=== PATIENT | female | born 1975 | race Caucasian/White ===

== ENCOUNTER 2021-05-15 18:13 | Emergency (ER) | payer OTHER, SELFPAY ==
--- NOTE | 2021-05-15 18:17 | XRR_ITS ---
PROCEDURE INFORMATION: Exam: XR Chest Exam date and time: 05/15/2021 6:17 PM Age: 45 years old Clinical indication: Cough and shortness of breath; Additional info: SOB TECHNIQUE: Imaging protocol: XR of the chest. Views: 1 view. COMPARISON: CR Thoracic Spine 3+ views* [id number] 04/20/2018 5:03 PM FINDINGS: Lungs: Lungs are clear. Pleural spaces: There is no pleural effusion or pneumothorax. Heart/Mediastinum: There is mild enlargement of the cardiac silhouette. Bones/joints: Bones are unremarkable. XR/XR chest 1V portable [id number] IMPRESSION: No acute findings.
[2021-05-15 18:23] VITALS: BP 138/82; PULSE 105; RESP 22; TEMP 38; O2SAT 88; BMI 43.7
--- NOTE | 2021-05-15 18:33 | W.ED.FEVER ---
HPI - Fever General: Chief Complaint: Fever Stated Complaint: N/V/COUGH/FEVER Time Seen by Provider: 05/15/21 18:29 History of Present Illness: HPI Narrative: This patient is a 45-year-old female who presents to the emergency department with complaint of shortness of breath fever and body aches. Patient states she is really fatigued. Patient does state that she had a history of bronchial pneumonia for 5 years ago and has really breath breathe well since. Patient is a started getting sick about 8 days ago. Patient does not have a cold vaccine and has not been seen by PCP. Will do medical evaluation treat as needed MD elicited complaint: fever Associated symptoms: Deny abdominal pain, flank pain, chills, chest pain, dysuria, extremity pain, headache(s), nausea or vomiting Review of Systems General: Reports: 10 or more systems reviewed and unremarkable except in HPI and below Const: Reports: fever(s); Denies: chills, body aches or fatigue Eyes: Denies: change in vision or blurry vision ENMT: Denies: throat pain, hoarseness or mouth pain Card: Denies: chest pain, palpitations, irregular heart rhythm, edema, swelling of feet/ankles or lightheadedness Resp: Reports: dyspnea and non-productive cough; Denies: productive cough, wheezing or pain on inspiration GI: Denies: abdominal pain, nausea or vomiting : Denies: flank pain, difficulty voiding, dysuria, urinary frequency, urinary urgency or urinary hesitancy Musc: Denies: neck pain, back pain, extremity pain, extremity swelling, joint pain, joint swelling, joint redness, joint warmth or limited range of motion Skin/Breast: Denies: rash, pruritus, erythema or skin tenderness Neuro: Denies: headache(s), numbness in extremities or weakness in extremities Psych: Denies: anxiety or depression [facility] Female Reproductive History: Date of last menstrual period: 04/29/21 Physical Exam Const: COMMON NORMALS: no acute distress, average body habitus, patient oriented x3, no limitations, healthy appearing, alert and well nourished HENMT: COMMON NORMALS: normocephalic, atraumatic, hearing grossly normal bilaterally, external ears normal, EAC's normal, TM's normal bilaterally, Normal external nose present, Normal nasal mucous membranes and turbinates present, moist oral mucous membranes, oropharynx normal, dentition normal and gingiva normal HEAD & SCALP: normocephalic and atraumatic NOSE: Normal external nose present and Normal nasal mucous membranes and turbinates present EXTERNAL EAR: Yes external ears normal EXTERNAL AUDITORY CANAL: EAC's normal TYMPANIC MEMBRANE: TM's normal bilaterally Neck/C-Spine: COMMON NORMALS: full ROM, no lymphadenopathy, supple, no meningeal signs, no JVD, Thyroid normal and No carotid bruits THYROID: Thyroid normal Chest: COMMONS NORMALS: normal inspection of the chest, normal palpation of entire chest wall, normal inspection of the breasts and normal palpation of the breasts Breast/axilla inspection: Yes normal inspection of the breasts BREAST/AXILLA PALPATION: Yes normal palpation of the breasts Resp: COMMON NORMALS: normal respiratory effort, No retractions, No use of accessory muscles, clear to auscultation bilaterally and percussion normal AUSCULTATION: clear to auscultation bilaterally PERCUSSION: percussion normal Cardio: COMMON NORMALS: no JVD, regular rate, regular rhythm, S1 normal heart sound present, S2 normal heart sound present, No gallops present (Cardio), No clicks present (Cardio), No murmurs present (Cardio), No rub (Cardio) and Peripheral pulses 2+ throughout RATE: regular rate RHYTHM: regular rhythm HEART SOUNDS: S1 normal heart sound present and S2 normal heart sound present PERIPHERAL PULSES: Peripheral pulses 2+ throughout GI: COMMON NORMALS: Normal to inspection, nondistended, normoactive bowel sounds present, Soft to palpation, non-tender, No hepatosplenomegaly present, no masses and no bruits PALPATION: Yes Soft to palpation and Yes No hepatosplenomegaly present Back/Pelvis: COMMON NORMALS: thoracic and lumbar spine normal to inspection, no thoracic nor lumbar tenderness, thoraco-lumbar ROM normal and straight leg raise negative bilaterally Extremity: COMMON NORMALS: normal to inspection, full ROM, capillary refill normal, no joint enlargement, no clubbing, cyanosis or edema, no calf tenderness and no pedal edema Neuro: COMMON NORMALS: patient oriented x3 SENSORIUM/ORIENTATION: Yes alert MENINGEAL SIGNS: Yes no meningeal signs Course Reevaluation(s): Reevaluation #1: Patient is stable. Home O2 evaluation showed the patient tolerated 3 L by nasal cannula. Patient appears to have Covid pneumonia. Patient be discharged home with home O2. Medrol Dosepak. Patient is to continue with albuterol inhaler. Get plenty rest. Patient should return to the emergency department if symptoms fail to improve or worsen. Patient is to maintain self quarantine as instructed Time: 21:58 Vital Signs: Vital signs: Vital Signs Temperature 100.4 F H 05/15/21 18:23 Pulse Rate 104 H 05/15/21 20:41 Respiratory Rate 22 H 05/15/21 20:41 Blood Pressure 119/69 05/15/21 20:41 Pulse Oximetry 96 05/15/21 20:41 MDM - Fever MDM Narrative: Medical decision making narrative: This patient is a 45-year-old female who presents to the emergency department with complaint of shortness of breath fever and body aches. Patient states she is really fatigued. Patient does state that she had a history of bronchial pneumonia for 5 years ago and has really breath breathe well since. Patient is a started getting sick about 8 days ago. Patient does not have a cold vaccine and has not been seen by PCP. Will do medical evaluation treat as needed Patient is stable. Home O2 evaluation showed the patient tolerated 3 L by nasal cannula. Patient appears to have Covid pneumonia. Patient be discharged home with home O2. Medrol Dosepak. Patient is to continue with albuterol inhaler. Get plenty rest. Patient should return to the emergency department if symptoms fail to improve or worsen. Patient is to maintain self quarantine as instructed Lab Data: Labs: Lab Results 05/15/21 05/15/21 05/15/21 Range/Units 18:43 20:22 20:22 WBC 4.7 (4.0-10.0) 10^3/ uL RBC 4.67 (4.1-5.3) 10^6/u L Hgb 12.6 (11.5-15.3) g/dL Hct 40.1 (37.0-47.0) % MCV 85.9 (81-99) fL MCH 27.0 L (28.0-34.0) pg MCHC 31.4 (30.0-36.0) g/dL RDW 14.2 (12.1-15.1) % Plt Count 159 (130-400) 10^3/c mm MPV 11.2 H (7.4-10.4) fL Neut % (Auto) 81.3 % Lymph % (Auto) 13.8 % [place] % (Auto) 4.5 % Eos % (Auto) 0.0 % Baso % (Auto) 0.2 % Neut # (Auto) 3.83 (1.8-7.7) 10^3/u L Lymph # (Auto) 0.7 L (0.8-4.8) 10^3/u L [place] # (Auto) 0.2 (0.2-0.9) 10^3/u L Eos # (Auto) 0.0 (0.0-0.8) 10^3/u L Baso # (Auto) 0.0 (0.0-0.1) 10^3/u L Nucleated RBC % (a uto) 0 % Nucleated RBCs # 0.0 /100WBC D-Dimer 2.20 H (0-0.59) ug/mIFE U Specimen Type Arterial Sample Site Radial, left ABG pH 7.42 (7.35-7.45) ABG pCO2 32.8 L (35-45) mmHg ABG pO2 69.0 L (80.0-100.0) mmH g ABG HCO3 21.2 L (22-26) mmol/L ABG O2 Saturation 95.4 ABG Base Excess -2.6 L (-2.0-2.0) mmol/ L Casey Test Pos A-a O2 Gradient 15.2 H (5-10) mmHg Hematocrit 39.6 (37-47) % Hgb O2 Saturation 93.7 L (95-100) % Carboxyhemoglobin 1.1 (0.4-20.1) %THgb Methemoglobin 0.7 (0.4-1.5) % Total Hemoglobin 12.9 (12-16) g/dL Sodium 132.0 (131-143) mmol/L Potassium 4.1 (3.5-5.0) mmol/L Glucose 255.0 H (70-115) mg/dL Ionized Calcium 1.2 (1.1-1.4) mmol/L O2 Delivery Device Nc O2 Liters/Min 3.0 % FiO2 32.0 % Collector [employer] ID Amh Chloride (98-107) mmol/L Carbon Dioxide (22-29) mmol/L Anion Gap (5-19) BUN (6-20) mg/dL Creatinine (0.5-0.9) mg/dL GFR Calculation (90-130) mL/min Calculated Osmolal ity (285-295) mOsm/k g Lactic Acid (0.5-2.2) mmol/L Calcium (8.5-10.5) mg/dL Total Bilirubin (0.15-1.2) mg/dL AST (0-32) U/L ALT (0-33) U/L Alkaline Phosphata se (35-105) IU/L Total Protein (6.6-8.7) g/dL Albumin (3.5-5.2) g/dL Globulin (1.3-4.6) g/dL SARS-CoV-2 Ag (Rap id) (Negative) Blood Type Rho(D) Type 05/15/21 05/15/21 05/15/21 Range/Units 20:22 20:22 20:22 WBC (4.0-10.0) 10^3/ uL RBC (4.1-5.3) 10^6/u L Hgb (11.5-15.3) g/dL Hct (37.0-47.0) % MCV (81-99) fL MCH (28.0-34.0) pg MCHC (30.0-36.0) g/dL RDW (12.1-15.1) % Plt Count (130-400) 10^3/c mm MPV (7.4-10.4) fL Neut % (Auto) % Lymph % (Auto) % [place] % (Auto) % Eos % (Auto) % Baso % (Auto) % Neut # (Auto) (1.8-7.7) 10^3/u L Lymph # (Auto) (0.8-4.8) 10^3/u L [place] # (Auto) (0.2-0.9) 10^3/u L Eos # (Auto) (0.0-0.8) 10^3/u L Baso # (Auto) (0.0-0.1) 10^3/u L Nucleated RBC % (a uto) % Nucleated RBCs # /100WBC D-Dimer (0-0.59) ug/mIFE U Specimen Type Sample Site ABG pH (7.35-7.45) ABG pCO2 (35-45) mmHg ABG pO2 (80.0-100.0) mmH g ABG HCO3 (22-26) mmol/L ABG O2 Saturation ABG Base Excess (-2.0-2.0) mmol/ L Casey Test A-a O2 Gradient (5-10) mmHg Hematocrit (37-47) % Hgb O2 Saturation (95-100) % Carboxyhemoglobin (0.4-20.1) %THgb Methemoglobin (0.4-1.5) % Total Hemoglobin (12-16) g/dL Sodium 130 L (131-143) mmol/L Potassium 4.6 (3.5-5.0) mmol/L Glucose 238 H (70-115) mg/dL Ionized Calcium (1.1-1.4) mmol/L O2 Delivery Device O2 Liters/Min % FiO2 % [employer] ID Chloride 98 (98-107) mmol/L Carbon Dioxide 21 L (22-29) mmol/L Anion Gap 15.6 (5-19) BUN 12 (6-20) mg/dL Creatinine 0.6 (0.5-0.9) mg/dL GFR Calculation 107.2 (90-130) mL/min Calculated Osmolal ity 278 L (285-295) mOsm/k g Lactic Acid 1.5 (0.5-2.2) mmol/L Calcium 8.9 (8.5-10.5) mg/dL Total Bilirubin 0.4 (0.15-1.2) mg/dL AST 29 (0-32) U/L ALT 23 (0-33) U/L Alkaline Phosphata se 261 H (35-105) IU/L Total Protein 6.8 (6.6-8.7) g/dL Albumin 3.5 (3.5-5.2) g/dL Globulin 3.3 (1.3-4.6) g/dL SARS-CoV-2 Ag (Rap id) (Negative) Blood Type O Positive Rho(D) Type Positive / 4+ 05/15/21 Range/Units 20:22 WBC (4.0-10.0) 10^3/ uL RBC (4.1-5.3) 10^6/u L Hgb (11.5-15.3) g/dL Hct (37.0-47.0) % MCV (81-99) fL MCH (28.0-34.0) pg MCHC (30.0-36.0) g/dL RDW (12.1-15.1) % Plt Count (130-400) 10^3/c mm MPV (7.4-10.4) fL Neut % (Auto) % Lymph % (Auto) % [place] % (Auto) % Eos % (Auto) % Baso % (Auto) % Neut # (Auto) (1.8-7.7) 10^3/u L Lymph # (Auto) (0.8-4.8) 10^3/u L [place] # (Auto) (0.2-0.9) 10^3/u L Eos # (Auto) (0.0-0.8) 10^3/u L Baso # (Auto) (0.0-0.1) 10^3/u L Nucleated RBC % (a uto) % Nucleated RBCs # /100WBC D-Dimer (0-0.59) ug/mIFE U Specimen Type Sample Site ABG pH (7.35-7.45) ABG pCO2 (35-45) mmHg ABG pO2 (80.0-100.0) mmH g ABG HCO3 (22-26) mmol/L ABG O2 Saturation ABG Base Excess (-2.0-2.0) mmol/ L Casey Test A-a O2 Gradient (5-10) mmHg Hematocrit (37-47) % Hgb O2 Saturation (95-100) % Carboxyhemoglobin (0.4-20.1) %THgb Methemoglobin (0.4-1.5) % Total Hemoglobin (12-16) g/dL Sodium (131-143) mmol/L Potassium (3.5-5.0) mmol/L Glucose (70-115) mg/dL Ionized Calcium (1.1-1.4) mmol/L O2 Delivery Device O2 Liters/Min % FiO2 % [employer] ID Chloride (98-107) mmol/L Carbon Dioxide (22-29) mmol/L Anion Gap (5-19) BUN (6-20) mg/dL Creatinine (0.5-0.9) mg/dL GFR Calculation (90-130) mL/min Calculated Osmolal ity (285-295) mOsm/k g Lactic Acid (0.5-2.2) mmol/L Calcium (8.5-10.5) mg/dL Total Bilirubin (0.15-1.2) mg/dL AST (0-32) U/L ALT (0-33) U/L Alkaline Phosphata se (35-105) IU/L Total Protein (6.6-8.7) g/dL Albumin (3.5-5.2) g/dL Globulin (1.3-4.6) g/dL SARS-CoV-2 Ag (Rap id) Positive H (Negative) Blood Type Rho(D) Type Imaging Data^: CXR: Attestation: I personally reviewed and interpreted this imaging study as follows: Radiologist's impression: IMPRESSION: No acute findings. CT Chest: Attestation: I personally reviewed and interpreted this imaging study as follows: Radiologist's impression: IMPRESSION: 1. No pulmonary embolism. 2. Moderate severity bilateral lung disease. Commonly reported imaging features of COVID-19 pneumonia are present. Other processes such as influenza pneumonia and organizing pneumonia (as can be seen with drug toxicity and connective tissue disease), can produce a similar imaging pattern. Discharge Plan Discharge Patient Disposition: Home Clinical Impression: Pneumonia due to COVID-19 virus Condition: Stable Prescriptions: New azithromycin 250 mg tablet 250 mg PO DAILY 6 Days RF: 0 methylprednisolone [Medrol (Yang)] 4 mg tablets,dose pack See Rx Instructions .ROUTE .COMPLEX Qty: 21 RF: 0 albuterol sulfate 90 mcg/actuation HFA aerosol inhaler 2 puff inhalation Q4H PRN (Reason: shortness of breath or wheezing) Qty: 8.5 RF: 0 No Action Tylenol 325 mg Tablet 325 - 650 mg PO Q4H PRN (Reason: PAIN/FEVER) RF: 0 Mucus Relief 200 mg Tablet 200 mg PO Q4H PRN (Reason: COLD/FLU SYMPTOMS) RF: 0 potassium 75 mg Tablet 75 mg PO DAILY RF: 0 Vitamin D3 50 mcg (2,000 unit) Tablet 50 mcg PO DAILY RF: 0 Vitamin C 1 tab PO DAILY RF: 0 Discharge Orders: Discharge ED (Routine); Ordered 05/15/21 Ordered By: Demarco Villalobos Discharge Diet: Advance as tolerated Discharge Activity: Increase activity as tolerated Patient Instructions: Opioid Safety Activity Restrictions/Additional Instructions: Covid precautions and self quarantine as instructed. Take medications as instructed. Get plenty rest drink plenty of fluids. Use home oxygen as instructed. Follow-up with primary care physician in 3 to 5 days as tolerable. Return to the emergency department symptoms fail to improve or worsen. 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
[2021-05-15 18:54] LABS: ABG PCO2 32.8 mmHg (35-45); ABG PH Result 7.42 (7.35-7.45); Alveolar-Arterial Oxygen Gradi 15.2 mmHg (5-10); Arterial Blood Gas Hematocrit 39.6 % (37-47); Base Excess ABG -2.6 mmol/L (-2.0-2.0); Blood Gas Allen Test Pos; Blood Gas Operator Identificat AMH; Blood Gas Sample Site Radial, left; Blood Gas Sample Type Arterial; Carboxyhemoglobin 1.1 %THgb (0.4-20.1); HCO3 ABG 21.2 mmol/L (22-26); HGB O2 Sat 93.7 % (95-100); Ionized Calcium Level - ABG 1.2 mmol/L (1.1-1.4); Methemoglobin 0.7 % (0.4-1.5); Oxygen Device NC; Oxygen Saturation ABG 95.4; Potassium Level - ABG 4.1 mmol/L (3.5-5.0); Total Hemoglobin 12.9 g/dL (12-16)
[2021-05-15] MEDS: acetaminophen 325 mg Tablet 650 MG PO (19:08)
[2021-05-15 19:12] VITALS: O2SAT 87; O2SAT 92; O2SAT 93
[2021-05-15] MEDS: dexamethasone 10 mg/mL INJ IM (19:12)
[2021-05-15 20:31] VITALS: PULSE 107; RESP 20; O2SAT 96
[2021-05-15 20:40] LABS: Basophils % 0.2 %; Hematocrit 40.1 % (37.0-47.0); Hemoglobin 12.6 g/dL (11.5-15.3); Lymphocytes # 0.7 10^3/uL (0.8-4.8); Lymphocytes % 13.8 %; Mean Corpuscular HGB Conc 31.4 g/dL (30.0-36.0); Mean Corpuscular Volume 85.9 fL (81-99); Mean Platelet Volume 11.2 fL (7.4-10.4); Monocytes # 0.2 10^3/uL (0.2-0.9); Monocytes % 4.5 %; Neutrophils # 3.83 10^3/uL (1.8-7.7); Neutrophils % 81.3 %; Nucleated Red Blood Cells % 0 %; Platelet Count 159 10^3/cmm (130-400); Red Blood Count 4.67 10^6/uL (4.1-5.3); Red Cell Distribution Width 14.2 % (12.1-15.1); White Blood Count 4.7 10^3/uL (4.0-10.0)
[2021-05-15 20:41] VITALS: BP 119/69; PULSE 104; RESP 22; O2SAT 96
[2021-05-15] MEDS: ondansetron 2 mg/ML SDV 2 mL 4 MG IVP (20:41)
[2021-05-15 20:55] LABS: Lactic Sepsis W/Reflex 1.5 mmol/L (0.5-2.2)
[2021-05-15 20:56] LABS: Alanine Aminotransferase 23 U/L (0-33); Albumin Level 3.5 g/dL (3.5-5.2); Alkaline Phosphatase 261 IU/L (35-105); Anion Gap 15.6 (5-19); Aspartate Amino Transferase 29 U/L (0-32); Blood Urea Nitrogen 12 mg/dL (6-20); Calcium 8.9 mg/dL (8.5-10.5); Carbon Dioxide 21 mmol/L (22-29); Chloride 98 mmol/L (98-107); Globulin 3.3 g/dL (1.3-4.6); Glomerular Filtration Rate 107.2 mL/min (90-130); Glucose 238 mg/dL (65-115); Osmolality Calculated 278 mOsm/kg (285-295); Potassium 4.6 mmol/L (3.5-5.1); Sodium 130 mmol/L (136-145); Total Bilirubin 0.4 mg/dL (0.15-1.2); Total Protein 6.8 g/dL (6.6-8.7)
[2021-05-15 21:08] LABS: SARS Covid-2 Antigen Positive (Negative)
--- NOTE | 2021-05-15 21:09 | CTR_ITS ---
PROCEDURE INFORMATION: Exam: CTA Chest With Contrast Exam date and time: 05/15/2021 9:09 PM Age: 45 years old Clinical indication: Cough and fever and shortness of breath; Additional info: SOB with elevated ddimer. Covid +. Fever, SOB, cough, weakness x 1 weekk TECHNIQUE: Imaging protocol: Computed tomographic angiography of the chest with contrast. 3D rendering (Not supervised by radiologist): MIP and/or 3D reconstructed images were created by the technologist. Radiation optimization: All CT scans at this facility use at least one of these dose optimization techniques: automated exposure control; mA and/or kV adjustment per patient size (includes targeted exams where dose is matched to clinical indication); or iterative reconstruction. Contrast material: VISI 320; Contrast volume: 68 ml; Contrast route: INTRAVENOUS (IV); COMPARISON: CR (CHEST, ) 05/15/2021 6:29 PM RADIATION DOSE METRICS: Total DLP (mGy-cm): 540.47 FINDINGS: Pulmonary arteries: The pulmonary arteries are adequately opacified for evaluation to the subsegmental level. There is no filling defect to suggest embolism. Aorta: The aorta is unremarkable. There is no aneurysm. Lungs: Moderate severity bilateral lung disease characterized by patchy ground-glass and reticular opacities. Pleural spaces: Unremarkable. No pneumothorax. No pleural effusion. Heart: Heart size is normal. There is no pericardial effusion. Lymph nodes: There is no mediastinal or hilar lymphadenopathy. Liver: There is diffuse low-attenuation of the liver relative to the spleen consistent with fatty infiltration. Bones/joints: Bones are unremarkable. Soft tissues: The extrathoracic soft tissues are unremarkable. CT/CT angio chest PE protcl [id number] IMPRESSION: 1. No pulmonary embolism. 2. Moderate severity bilateral lung disease. Commonly reported imaging features of COVID-19 pneumonia are present. Other processes such as influenza pneumonia and organizing pneumonia (as can be seen with drug toxicity and connective tissue disease), can produce a similar imaging pattern. Radiation Dose CTDIVOL = (mGy): DLP = 540.47 (mGy-cm)
[2021-05-15] MEDS: iodixanol 320 mg/mL 100mL Btl IV (21:33)
== END 2021-05-15 23:26 | disposition home or self-care (01) ==
PROVIDERS: Emergency Medicine; Emergency Provider Emergency Medicine
DX: U07.1 COVID-19 (principal); J12.82 Pneumonia due to coronavirus disease 2019
CPT/HCPCS: 36600; 71045; 71275; 80051; 80053; 82330; 82805; 83605; 85025; 85378; 86900; 87426; 96372; 96374; 99284; J1100; J2405; Q9967

== ENCOUNTER 2021-05-18 17:33 | Inpatient (IN) | payer OTHER, SELFPAY ==
[2021-05-18 17:56] VITALS: BP 124/79; PULSE 82; RESP 22; TEMP 37.1; O2SAT 93; BMI 42.9
--- NOTE | 2021-05-18 18:36 | XRR_ITS ---
PROCEDURE INFORMATION: Exam: XR Chest Exam date and time: 05/18/2021 6:36 PM Age: 45 years old Clinical indication: Shortness of breath; Patient HX: Covid +; Additional info: Hypoxia, dyspnea TECHNIQUE: Imaging protocol: XR of the chest. Views: 1 view. Total images: 1 COMPARISON: CR (CHEST, ) 05/15/2021 6:29 PM FINDINGS: Lungs: Bilateral patches of ground-glass interstitial lung disease consistent with active interstitial pneumonitis. Findings would be consistent with Covid-19 pneumonitis. Evidence of progression of disease since last examination of 05/15/2021. Pleural spaces: Unremarkable. No pleural effusion. No pneumothorax. Heart/Mediastinum: Cardiac structures and configuration stable and within normal limits for age. Bones/joints: Unremarkable. XR/XR chest 1V portable [id number] IMPRESSION: 1. Bilateral patches of ground-glass interstitial lung disease consistent with active interstitial pneumonitis. Findings would be consistent with Covid-19 pneumonitis. 2. Evidence of progression of disease since last evaluation.
--- NOTE | 2021-05-18 19:03 | W.ED.SOB ---
HPI - SOB/Dyspnea General: Chief Complaint: Shortness of Breath/Dyspnea Stated Complaint: Covid +, pneumonia Time Seen by Provider: 05/18/21 18:36 History of Present Illness: HPI Narrative: This patient is a 45-year-old female who presents to the emergency department with Covid pneumonia. Decreased O2 sats and increased work of breathing. Patient was seen in the emergency department couple days ago and was discharged home with home O2 patient states that she feels like she cannot get enough oxygen. Patient denies fever. Patient states she has been taking all the medications that she was prescribed the other day. The medical evaluation treat as needed MD elicited complaint: shortness of breath and cough Pertinent past history: asthma and other (Covid) Onset (ago): day(s) Context: recent illness Associated symptoms: Deny abdominal pain, chest pain, extremity pain, fever(s), lightheadedness, nausea, palpitations or vomiting Review of Systems General: Reports: 10 or more systems reviewed and unremarkable except in HPI and below Const: Denies: fever(s), chills, body aches or fatigue Eyes: Denies: change in vision or blurry vision ENMT: Denies: throat pain, hoarseness or mouth pain Card: Denies: chest pain, palpitations, irregular heart rhythm, edema, swelling of feet/ankles or lightheadedness Resp: Reports: dyspnea, non-productive cough and wheezing; Denies: productive cough or pain on inspiration GI: Denies: abdominal pain, nausea or vomiting : Denies: flank pain, difficulty voiding, dysuria, urinary frequency, urinary urgency or urinary hesitancy Musc: Denies: neck pain, back pain, extremity pain, extremity swelling, joint pain, joint swelling, joint redness, joint warmth or limited range of motion Skin/Breast: Denies: rash, pruritus, erythema or skin tenderness Neuro: Denies: headache(s), numbness in extremities or weakness in extremities Psych: Denies: anxiety or depression [facility] Female Reproductive History: Date of last menstrual period: 04/29/21 Physical Exam Const: COMMON NORMALS: no acute distress, average body habitus, patient oriented x3, no limitations, healthy appearing, alert and well nourished HENMT: COMMON NORMALS: normocephalic, atraumatic, hearing grossly normal bilaterally, external ears normal, EAC's normal, TM's normal bilaterally, Normal external nose present, Normal nasal mucous membranes and turbinates present, moist oral mucous membranes, oropharynx normal, dentition normal and gingiva normal HEAD & SCALP: normocephalic and atraumatic NOSE: Normal external nose present and Normal nasal mucous membranes and turbinates present EXTERNAL EAR: Yes external ears normal EXTERNAL AUDITORY CANAL: EAC's normal TYMPANIC MEMBRANE: TM's normal bilaterally Neck/C-Spine: COMMON NORMALS: full ROM, no lymphadenopathy, supple, no meningeal signs, no JVD, Thyroid normal and No carotid bruits THYROID: Thyroid normal Chest: COMMONS NORMALS: normal inspection of the chest, normal palpation of entire chest wall, normal inspection of the breasts and normal palpation of the breasts Breast/axilla inspection: Yes normal inspection of the breasts BREAST/AXILLA PALPATION: Yes normal palpation of the breasts Resp: COMMON NORMALS: No retractions, No use of accessory muscles and percussion normal EFFORT & INSPECTION: Yes tachypneic and Yes uses accessory muscles PERCUSSION: percussion normal Cardio: COMMON NORMALS: no JVD, regular rate, regular rhythm, S1 normal heart sound present, S2 normal heart sound present, No gallops present (Cardio), No clicks present (Cardio), No murmurs present (Cardio), No rub (Cardio) and Peripheral pulses 2+ throughout RATE: regular rate RHYTHM: regular rhythm HEART SOUNDS: S1 normal heart sound present and S2 normal heart sound present PERIPHERAL PULSES: Peripheral pulses 2+ throughout GI: COMMON NORMALS: Normal to inspection, nondistended, normoactive bowel sounds present, Soft to palpation, non-tender, No hepatosplenomegaly present, no masses and no bruits PALPATION: Yes Soft to palpation and Yes No hepatosplenomegaly present : COMMON NORMALS: Yes no CVA tenderness, Yes normal external appearance, Yes normal appearance of the vagina, Yes normal appearance of the cervix, Yes normal bimanual exam, Yes No adnexal tenderness and Yes no masses BLADDER/KIDNEY EXAM: Yes no CVA tenderness BIMANUAL EXAM - VAGINA & UTERUS: Yes normal bimanual exam Back/Pelvis: COMMON NORMALS: no CVA tenderness, thoracic and lumbar spine normal to inspection, no thoracic nor lumbar tenderness, thoraco-lumbar ROM normal and straight leg raise negative bilaterally Extremity: COMMON NORMALS: normal to inspection, full ROM, capillary refill normal, no joint enlargement, no clubbing, cyanosis or edema, no calf tenderness and no pedal edema Neuro: COMMON NORMALS: patient oriented x3 SENSORIUM/ORIENTATION: Yes alert MENINGEAL SIGNS: Yes no meningeal signs Course Reevaluation(s): Reevaluation #1: I did discuss at length with patient about Covid pneumonia concerns. Patient agrees to be admitted to the hospital. Patient has refused BiPAP. Patient is on 10 L by nasal cannula O2 sat is up to 94% at this time Time: 19:43 Consultations: Consultation #1: I discussed at length with Dr. Vo. He is accepted this patient for admission. He will see patient write additional Time: 19:43 Vital Signs: Vital signs: Vital Signs Temperature 98.7 F 05/18/21 17:56 Pulse Rate 80 05/18/21 20:11 Respiratory Rate 28 H 05/18/21 20:11 Blood Pressure 124/79 05/18/21 17:56 Pulse Oximetry 93 05/18/21 20:11 MDM - SOB/Dyspnea MDM Narrative: Medical decision making narrative: This patient is a 45-year-old female who presents to the emergency department with Covid pneumonia. Decreased O2 sats and increased work of breathing. Patient was seen in the emergency department couple days ago and was discharged home with home O2 patient states that she feels like she cannot get enough oxygen. Patient denies fever. Patient states she has been taking all the medications that she was prescribed the other day. I did discuss at length with patient about Covid pneumonia concerns. Patient agrees to be admitted to the hospital. Patient has refused BiPAP. Patient is on 10 L by nasal cannula O2 sat is up to 94% at this time I discussed at length with Dr. Vo. He is accepted this patient for admission. He will see patient write additional Medical Records: Attestation: I reviewed the patient's medical records. Lab Data: Attestation: I reviewed the patient's lab results. Labs: Lab Results 05/18/21 05/18/21 05/18/21 Range/Units 19:10 19:10 19:10 WBC 9.6 (4.0-10.0) 10^3/ uL RBC 4.70 (4.1-5.3) 10^6/u L Hgb 12.6 (11.5-15.3) g/dL Hct 40.2 (37.0-47.0) % MCV 85.5 (81-99) fL MCH 26.8 L (28.0-34.0) pg MCHC 31.3 (30.0-36.0) g/dL RDW 13.4 (12.1-15.1) % Plt Count 253 (130-400) 10^3/c mm MPV 11.2 H (7.4-10.4) fL Neut % (Auto) 87.1 % Lymph % (Auto) 5.9 % [place] % (Auto) 5.0 % Eos % (Auto) 0.1 % Baso % (Auto) 0.2 % Neut # (Auto) 8.32 H (1.8-7.7) 10^3/u L Lymph # (Auto) 0.6 L (0.8-4.8) 10^3/u L [place] # (Auto) 0.5 (0.2-0.9) 10^3/u L Eos # (Auto) 0.0 (0.0-0.8) 10^3/u L Baso # (Auto) 0.0 (0.0-0.1) 10^3/u L Nucleated RBC % (a uto) 0 % Nucleated RBCs # 0.0 /100WBC APTT 23.0 L (23.9-36.7) SECO NDS Fibrinogen 621 H (174-498) mg/dL D-Dimer 2.49 H (0-0.59) ug/mIFE U Specimen Type Sample Site ABG pH (7.35-7.45) ABG pCO2 (35-45) mmHg ABG pO2 (80.0-100.0) mmH g ABG HCO3 (22-26) mmol/L ABG Base Excess (-2.0-2.0) mmol/ L Casey Test Hematocrit (37-47) % O2 Delivery Device O2 Liters/Min % Computer Help Desk Representative ID Sodium 135 L (136-145) mmol/L Potassium 4.3 (3.5-5.1) mmol/L Chloride 96 L (98-107) mmol/L Carbon Dioxide 25 (22-29) mmol/L Anion Gap 18.3 (5-19) BUN 21 H (6-20) mg/dL Creatinine 0.6 (0.5-0.9) mg/dL GFR Calculation 107.2 (90-130) mL/min Glucose 408 H (65-115) mg/dL Calculated Osmolal ity 300 H (285-295) mOsm/k g Lactic Acid (0.5-2.2) mmol/L Calcium 9.4 (8.5-10.5) mg/dL Total Bilirubin 0.5 (0.15-1.2) mg/dL AST 18 (0-32) U/L ALT 19 (0-33) U/L Alkaline Phosphata se 214 H (35-105) IU/L Creatine Kinase 19 L (26-192) U/L Troponin T Gen 5 n g/L (0-10) ng/L C-Reactive Protein 97.2 H (0.0-4.9) mg/L NT-Pro-B Natriuret Pep 271 H (0-125) pg/mL Total Protein 6.1 L (6.6-8.7) g/dL Albumin 3.6 (3.5-5.2) g/dL Globulin 2.5 (1.3-4.6) g/dL Procalcitonin 0.07 (0-0.5) ng/mL 05/18/21 05/18/21 05/18/21 Range/Units 19:10 19:10 19:30 WBC (4.0-10.0) 10^3/ uL RBC (4.1-5.3) 10^6/u L Hgb (11.5-15.3) g/dL Hct (37.0-47.0) % MCV (81-99) fL MCH (28.0-34.0) pg MCHC (30.0-36.0) g/dL RDW (12.1-15.1) % Plt Count (130-400) 10^3/c mm MPV (7.4-10.4) fL Neut % (Auto) % Lymph % (Auto) % [place] % (Auto) % Eos % (Auto) % Baso % (Auto) % Neut # (Auto) (1.8-7.7) 10^3/u L Lymph # (Auto) (0.8-4.8) 10^3/u L [place] # (Auto) (0.2-0.9) 10^3/u L Eos # (Auto) (0.0-0.8) 10^3/u L Baso # (Auto) (0.0-0.1) 10^3/u L Nucleated RBC % (a uto) % Nucleated RBCs # /100WBC APTT (23.9-36.7) SECO NDS Fibrinogen (174-498) mg/dL D-Dimer (0-0.59) ug/mIFE U Specimen Type Arterial Sample Site Radial, right ABG pH 7.43 (7.35-7.45) ABG pCO2 41.1 (35-45) mmHg ABG pO2 78.4 L (80.0-100.0) mmH g ABG HCO3 26.9 H (22-26) mmol/L ABG Base Excess 2.3 H (-2.0-2.0) mmol/ L Casey Test Pos Hematocrit 37.5 (37-47) % O2 Delivery Device Nc O2 Liters/Min 10.0 % Computer Help Desk Representative ID [email or web address] Sodium (136-145) mmol/L Potassium (3.5-5.1) mmol/L Chloride (98-107) mmol/L Carbon Dioxide (22-29) mmol/L Anion Gap (5-19) BUN (6-20) mg/dL Creatinine (0.5-0.9) mg/dL GFR Calculation (90-130) mL/min Glucose (65-115) mg/dL Calculated Osmolal ity (285-295) mOsm/k g Lactic Acid 3.2 H (0.5-2.2) mmol/L Calcium (8.5-10.5) mg/dL Total Bilirubin (0.15-1.2) mg/dL AST (0-32) U/L ALT (0-33) U/L Alkaline Phosphata se (35-105) IU/L Creatine Kinase (26-192) U/L Troponin T Gen 5 n g/L 7 (0-10) ng/L C-Reactive Protein (0.0-4.9) mg/L NT-Pro-B Natriuret Pep (0-125) pg/mL Total Protein (6.6-8.7) g/dL Albumin (3.5-5.2) g/dL Globulin (1.3-4.6) g/dL Procalcitonin (0-0.5) ng/mL Imaging Data^: CXR: Attestation: I personally reviewed and interpreted this imaging study as follows: Radiologist's impression: IMPRESSION: 1. Bilateral patches of ground-glass interstitial lung disease consistent with active interstitial pneumonitis. Findings would be consistent with Covid-19 pneumonitis. 2. Evidence of progression of disease since last evaluation. 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
[2021-05-18] MEDS: albuterol 8 gm MDI 2 PUFF INHALATION (19:19)
[2021-05-18 19:22] VITALS: PULSE 88; RESP 26; O2SAT 95
[2021-05-18 19:25] LABS: Basophils % 0.2 %; Eosinophils % 0.1 %; Hematocrit 40.2 % (37.0-47.0); Hemoglobin 12.6 g/dL (11.5-15.3); Lymphocytes # 0.6 10^3/uL (0.8-4.8); Lymphocytes % 5.9 %; Mean Corpuscular HGB Conc 31.3 g/dL (30.0-36.0); Mean Corpuscular Hemoglobin 26.8 pg (28.0-34.0); Mean Corpuscular Volume 85.5 fL (81-99); Mean Platelet Volume 11.2 fL (7.4-10.4); Monocytes # 0.5 10^3/uL (0.2-0.9); Neutrophils # 8.32 10^3/uL (1.8-7.7); Neutrophils % 87.1 %; Nucleated Red Blood Cells % 0 %; Platelet Count 253 10^3/cmm (130-400); Red Cell Distribution Width 13.4 % (12.1-15.1); White Blood Count 9.6 10^3/uL (4.0-10.0)
[2021-05-18 19:37] LABS: ABG PCO2 41.1 mmHg (35-45); ABG PH Result 7.43 (7.35-7.45); Arterial Blood Gas Hematocrit 37.5 % (37-47); Base Excess ABG 2.3 mmol/L (-2.0-2.0); Blood Gas Allen Test Pos; Blood Gas Sample Site Radial, right; Blood Gas Sample Type Arterial; HCO3 ABG 26.9 mmol/L (22-26); Oxygen Device NC; PO2 ABG 78.4 mmHg (80.0-100.0)
[2021-05-18 19:48] LABS: Fibrinogen 621 mg/dL (174-498)
[2021-05-18 19:50] LABS: D Dimer 2.49 ug/mIFEU (0-0.59)
[2021-05-18 19:52] LABS: Lactic Sepsis W/Reflex 3.2 mmol/L (0.5-2.2); Troponin T (5th) Once 7 ng/L (0-10)
[2021-05-18 19:59] LABS: NT Pro B Type Natriuretic Pept 271 pg/mL (0-125); Procalcitonin 0.07 ng/mL (0-0.5)
[2021-05-18] MEDS: dexamethasone 4 mg/mL INJ 10 MG IVP (20:05)
[2021-05-18 20:11] VITALS: PULSE 80; RESP 28; O2SAT 93
[2021-05-18 20:11] LABS: Alanine Aminotransferase 19 U/L (0-33); Albumin Level 3.6 g/dL (3.5-5.2); Alkaline Phosphatase 214 IU/L (35-105); Anion Gap 18.3 (5-19); Aspartate Amino Transferase 18 U/L (0-32); Blood Urea Nitrogen 21 mg/dL (6-20); C Reactive Protein 97.2 mg/L (0.0-4.9); Calcium 9.4 mg/dL (8.5-10.5); Carbon Dioxide 25 mmol/L (22-29); Chloride 96 mmol/L (98-107); Creatine Phosphokinase 19 U/L (26-192); Creatinine Clr Calc Pharmacy 143.0571; Globulin 2.5 g/dL (1.3-4.6); Glomerular Filtration Rate 107.2 mL/min (90-130); Glucose 408 mg/dL (65-115); Osmolality Calculated 300 mOsm/kg (285-295); Potassium 4.3 mmol/L (3.5-5.1); Sodium 135 mmol/L (136-145); Total Bilirubin 0.5 mg/dL (0.15-1.2); Total Protein 6.1 g/dL (6.6-8.7)
[2021-05-18] MEDS: sodium chloride 0.9% 500 ML 999 ML IV (20:11)
--- NOTE | 2021-05-18 20:23 | PM.HP ---
Providers/Chief Complaint Chief Complaint: Covid +, pneumonia History of Present Illness 45-year-old female with past medical history of diet controlled diabetes mellitus who was diagnosed with COVID-19 on 05/15/2021 discharged on 3L of o2 via NC presenting to ER with increasing respiratory respiratory distress.Stated after returning home her o2 saturation decreased to low 60s with any exertion. Also noted non-productive cough, generalized weakness, subjective fever, and chills. She was also discharged with medrol dose pack. Upon return to ER today her initial laboratory workup showed a WBC of 9.6, hemoglobin of 12.6, hematocrit 40.2 and platelet count 253. Sodium 135, potassium 4.3, chloride 96, bicarb 25, BUN 21 and creatinine of 0.6 and glucose of 408. Lactic acid of 3.2, AST of 18, ALT of 19 and alkaline phosphatase of 214 CRP of 97.2. ProBNP of 271 procalcitonin of 0.07. Arterial blood gases showed a pH of 7.43, pCO2 41.1, PO2 of 78.4 on 10 L of O2 via nasal cannula. Chest x-ray showed bilateral patchy ground-glass interstitial lung disease consistent with active interstitial pneumonitis. Evidence of progression from prior imaging studies on 05/15. During that time she did have a CTA chest which showed moderate bilateral patchy ground-glass and reticular opacities without evidence of pulmonary embolism. Patient was given decadron 10 mg IV x 1, levaquin 750 IV x 1 and started on HFNC. Review of Systems General: Reports: 10 or more systems reviewed and unremarkable except in HPI and below Medications/Allergies Home Medications Medication Instructions Recorded Confirmed Last Taken Type Vitamin C 1 tab PO DAILY 05/15/21 05/15/21 Unknown History acetaminophen [Tylenol] 325 - 650 mg PO Q4H PRN 05/15/21 05/15/21 05/13/21 History albuterol sulfate 2 puff INHALATION Q4H PRN #8.5 g 05/15/21 Unknown Rx azithromycin 250 mg PO DAILY 6 Days tab 05/15/21 Unknown Rx cholecalciferol (vitamin D3) 50 mcg PO DAILY 05/15/21 05/15/21 Unknown History [Vitamin D3] guaifenesin [Mucus Relief] 200 mg PO Q4H PRN 05/15/21 05/15/21 Unknown History methylprednisolone [Medrol (Yang)] See Rx Instructions .ROUTE 05/15/21 Unknown Rx .COMPLEX #21 ea potassium 75 mg PO DAILY 05/15/21 05/15/21 Unknown History Allergies Allergy/AdvReac Type Severity Reaction Status Date / Time amoxicillin [From Augmentin] Allergy Unknown Verified 05/15/21 19:09 clavulanic acid Allergy Unknown Verified 05/15/21 19:09 [From Augmentin] PFSH Acute PFSH: Medical History (Updated 05/19/21 @ 00:49 by Mohinder Vo MD) Diabetes No pertinent family history Pneumonia due to COVID-19 virus Surgical History (Updated 05/19/21 @ 00:46 by Mohinder Vo MD) No pertinent past surgical history Social History (Updated 05/19/21 @ 00:46 by Mohinder Vo MD) Smoking and tobacco status: never smoked Alcohol intake: never Substance/Drug Use: never Female Reproductive History: Date of last menstrual period: 04/29/21 Vitals/I&O/Wt Last Vital Signs Temp 98.7 F 05/18/21 17:56 Pulse 80 05/18/21 20:11 Resp 28 H 05/18/21 20:11 BP 124/79 05/18/21 17:56 Pulse Ox 93 05/18/21 20:11 Weight last 48 hrs Weight 113.398 kg Physical Exam Narrative: EXAM NARRATIVE: General- alert awake and oriented x3 HEENT- grossly unremarkable Chest- Mildly labored respiration on HFNC CVS - regular rate rhythm Abdomen-soft nontender nondistended Extremities-no edema Data : 05/18/21 19:10 05/18/21 19:10 Micro: Microbiology 05/18/21 19:10 Blood Culture - Preliminary Blood SPECIMEN COLLECTED A&P Assessment and plan (1) Pneumonia due to COVID-19 virus: Unvaccinated Supplemental o2 as needed HFNC currently Decadron 6 mg IV daily Discussed Risk/benefit of remdesivir - would like to wait to decide Can discuss in am Empirically started on levaquin 750 mg IV daily Ferritin, CRP, Pro-danii in am Status: Acute (2) Diabetes: Sliding scale insulin A1c in am Status: Acute (3) DVT prophylaxis: Lovenox 40 mg SQ daily Status: Acute Attestations Medical Necessity Statement*: Will require over 2 midnight stay in hospital for eval and treatment of covid19 pneumonia Time Spent in Patient Care: Greater than 35 minutes (>than 50% of time spent in counselling and/or direct pt care on unit). 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
[2021-05-18 20:54] LABS: INR 0.97 (0.8-1.2)
[2021-05-18] MEDS: levofloxacin-dextrose 5 % 750 MG/150 ML PREMIX 100 MG IV (20:54)
[2021-05-18] MEDS: sodium chloride 0.9% 1,000 ML 999 ML IV (20:55)
[2021-05-18 21:08] LABS: Reflex Lactate Order REFLEX LACTIC ORDERD
[2021-05-18 21:28] LABS: Ferritin 356 ng/mL (15-150)
[2021-05-18 22:11] VITALS: PULSE 80; RESP 20; TEMP 37.1; O2SAT 93
[2021-05-18 22:30] LABS: Lactic Acid level (Lactate) 1.6 mmol/L (0.5-2.2)
--- NOTE | 2021-05-18 22:37 | PC.NURSE ---
REPORT CALLED TO BEV AT [facility] / [facility].
[2021-05-18 23:00] VITALS: PULSE 80; RESP 20; TEMP 37.1; O2SAT 95
[2021-05-18 23:34] VITALS: BP 122/99; PULSE 80; RESP 20; TEMP 37.1; O2SAT 95
[2021-05-19] VITALS (14 sets, daily range): BP systolic 114–167; BP diastolic 71–90; PULSE 66–76; RESP 17–24; TEMP 36.6–36.8; O2SAT 87–96
[2021-05-19] MEDS: enoxaparin 40 mg/0.4 mL Syringe SUBCUT (01:08)
[2021-05-19] MEDS: alum-mag-hydroxide-sime 30 mL UDC PO (06:07)
[2021-05-19 06:34] LABS: Glucose Point of Care 459 mg/dL (70-110)
[2021-05-19 08:34] LABS: Ferritin 318 ng/mL (15-150)
[2021-05-19] MEDS: ondansetron 2 mg/ML SDV 2 mL 4 MG IVP (09:26)
[2021-05-19] MEDS: pantoprazole DR 40 mg Tablet PO (09:26)
--- NOTE | 2021-05-19 10:22 | PM.PN ---
Subjective Subjective: Interval history: Meagan reports she is still significantly short of breath with any movement. I discussed with her the risks and benefits of antiviral, as well as Tocilizumab and she agrees to treatment. Medications: Reviewed: Yes Vitals/I&O/Wt Last Vital Signs Temp 98.2 F 05/19/21 07:37 Pulse 74 05/19/21 09:03 Resp 18 05/19/21 07:37 BP 167/90 05/19/21 07:37 Pulse Ox 96 05/19/21 09:03 05/18/21 05/19/21 05/19/21 22:59 06:59 14:59 Intake Total 1650 / 1650 240 / 240 Output Total 250 / 250 Balance 1650 / 1650 -250 / 1400 240 / 240 Weight last 48 hrs Weight 113.398 kg Physical Exam Narrative: EXAM NARRATIVE: General exam is moderate respiratory distress, while laying in bed on 10 L Neck is supple no lymphadenopathy or thyromegaly Cardiovascular regular rate and rhythm without murmur Lungs coarse breath sounds bilaterally Abdomen is soft nontender with positive bowel sounds. No obvious organomegaly exam is deferred Extremities no cyanosis clubbing or edema Urinary Catheter Management^: Edwards: Cath Placed During This Visit: yes Urinary Catheter Date of Insertion: 05/19/21 Urinary Catheter Time of Insertion: 06:50 Data : 05/18/21 19:10 05/18/21 19:10 Micro: Microbiology 05/18/21 19:00 Blood Culture - Preliminary Blood SPECIMEN COLLECTED 05/18/21 19:10 Blood Culture - Preliminary Blood SPECIMEN COLLECTED A&P Assessment and plan (1) Pneumonia due to COVID-19 virus: Continue dexamethasone 6 mg IV every 24 hours Add remdesivir Tocilizumab today Combivent every 6 hours Changed to high flow humidified Continuous pule ox High risk for decompensation Status: Acute (2) Acute and chronic respiratory failure with hypoxia: See above Status: Acute (3) Diabetes: Continue sliding scale insulin Add Lantus 20 units nightly Check hemoglobin A1c Status: Acute Additional A&P Information Full code Lovenox for DVT prophylaxis, 30 mg twice daily considering weight Attestations Medical Necessity Statement*: Needs continued hospital stay for support with high flow oxygen secondary to COVID-19 pneumonia as well as treatment with antiviral. 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
[2021-05-19] MEDS: remdesivir 200 MG in sodium chloride 0.9% (100 ml) 100 ML 100 MG IV (10:50)
[2021-05-19 11:26] LABS: Glucose Point of Care 416 mg/dL (70-110)
[2021-05-19] MEDS: FUROsemide 10 mg/mL SDV 2mL 20 MG IVP (12:27)
[2021-05-19] MEDS: LORazepam 0.5 mg Tablet PO ×2 (12:27→22:11)
[2021-05-19] MEDS: tocilizumab 800 MG in sodium chloride 0.9% (100 ml) 100 ML 100 MG IV (12:27)
[2021-05-19 16:51] LABS: Glucose Point of Care 385 mg/dL (70-110)
[2021-05-19] MEDS: enoxaparin 30 mg/0.3 mL Syringe SUBCUT (18:06)
[2021-05-19] MEDS: dexamethasone 4 mg/mL INJ 6 MG IVP (18:07)
[2021-05-19] MEDS: insulin glargine 100 units/1 mL 20 UNIT SUBCUT (20:39)
[2021-05-19] MEDS: levofloxacin-dextrose 5 % 750 MG/150 ML PREMIX 100 MG IV (20:39)
[2021-05-19 21:00] LABS: Glucose Point of Care 380 mg/dL (70-110)
[2021-05-20] VITALS (14 sets, daily range): BP systolic 105–150; BP diastolic 68–87; PULSE 54–92; RESP 16–30; TEMP 36.4–36.9; O2SAT 88–98
[2021-05-20] MEDS: remdesivir 100 MG in sodium chloride 0.9% (100 ml) 100 ML IV (05:32)
[2021-05-20] MEDS: enoxaparin 30 mg/0.3 mL Syringe SUBCUT ×2 (05:32→18:24)
[2021-05-20 06:12] LABS: Basophils % 0.2 %; Hematocrit 38.6 % (37.0-47.0); Hemoglobin 12.2 g/dL (11.5-15.3); Lymphocytes # 0.5 10^3/uL (0.8-4.8); Lymphocytes % 11.7 %; Mean Corpuscular HGB Conc 31.6 g/dL (30.0-36.0); Mean Corpuscular Volume 85.4 fL (81-99); Mean Platelet Volume 11.2 fL (7.4-10.4); Monocytes # 0.3 10^3/uL (0.2-0.9); Monocytes % 6.9 %; Neutrophils # 3.54 10^3/uL (1.8-7.7); Neutrophils % 76.4 %; Nucleated Red Blood Cells % 0 %; Platelet Count 260 10^3/cmm (130-400); Red Blood Count 4.52 10^6/uL (4.1-5.3); Red Cell Distribution Width 13.1 % (12.1-15.1); White Blood Count 4.6 10^3/uL (4.0-10.0)
[2021-05-20 06:27] LABS: Alanine Aminotransferase 19 U/L (0-33); Albumin Level 3.2 g/dL (3.5-5.2); Alkaline Phosphatase 186 IU/L (35-105); Anion Gap 16.4 (5-19); Aspartate Amino Transferase 16 U/L (0-32); Blood Urea Nitrogen 24 mg/dL (6-20); Calcium 9.4 mg/dL (8.5-10.5); Carbon Dioxide 25 mmol/L (22-29); Chloride 97 mmol/L (98-107); Creatinine Clr Calc Pharmacy 143.0571; Globulin 2.9 g/dL (1.3-4.6); Glomerular Filtration Rate 107.2 mL/min (90-130); Glucose 387 mg/dL (65-115); Osmolality Calculated 298 mOsm/kg (285-295); Potassium 4.4 mmol/L (3.5-5.1); Sodium 134 mmol/L (136-145); Total Bilirubin 0.3 mg/dL (0.15-1.2); Total Protein 6.1 g/dL (6.6-8.7)
[2021-05-20 06:31] LABS: C Reactive Protein 35.5 mg/L (0.0-4.9)
[2021-05-20 06:43] LABS: Glucose Point of Care 370 mg/dL (70-110)
[2021-05-20 06:50] LABS: D Dimer 1.51 ug/mIFEU (0-0.59)
[2021-05-20 07:45] LABS: Ferritin 307 ng/mL (15-150)
[2021-05-20 07:53] LABS: Estmated Average Glucose 246; Hemoglobin A1C 10.2 % (4.0-6.0)
[2021-05-20] MEDS: pantoprazole DR 40 mg Tablet PO (08:05)
[2021-05-20 11:14] LABS: Glucose Point of Care 469 mg/dL (70-110)
--- NOTE | 2021-05-20 11:20 | PM.PN ---
Subjective Subjective: Interval history: Meagan reports that she believes she is breathing a little bit better. Her oxygen saturations of go up. She is still very fatigued, and gets short of breath with any exertion. Medications: Reviewed: Yes Vitals/I&O/Wt Last Vital Signs Temp 98.2 F 05/20/21 07:50 Pulse 61 05/20/21 08:29 Resp 18 05/20/21 08:25 BP 106/72 05/20/21 07:50 Pulse Ox 95 05/20/21 08:25 05/19/21 05/20/21 05/20/21 22:59 06:59 14:59 Intake Total 390 / 1110 460 / 460 Output Total 2600 / 2600 775 / 3375 Balance -2210 / -1490 -775 / -2265 460 / 460 Weight last 48 hrs Weight 113.398 kg Physical Exam Narrative: EXAM NARRATIVE: General exam is moderate respiratory distress, 60% FiO2 per high flow nasal cannula Neck is supple no lymphadenopathy or thyromegaly Cardiovascular regular rate and rhythm without murmur Lungs coarse breath sounds bilaterally Abdomen is soft nontender with positive bowel sounds. No obvious organomegaly Extremities no cyanosis clubbing or edema Urinary Catheter Management^: Edwards: Cath Placed During This Visit: yes Reason for Continuing Indwelling Catheter: Other Urinary Catheter Date of Insertion: 05/19/21 Urinary Catheter Time of Insertion: 06:50 Data : 05/20/21 05:40 05/20/21 05:40 Micro: Microbiology 05/18/21 19:00 Blood Culture - Preliminary Blood NEGATIVE TO DATE 05/18/21 19:10 Blood Culture - Preliminary Blood NEGATIVE TO DATE A&P Assessment and plan (1) Pneumonia due to COVID-19 virus: Continue dexamethasone 6 mg IV every 24 hours Continue remdesivir Tocilizumab was given 05/19 Combivent every 6 hours Wean oxygen as tolerated Currently on Levaquin. Consider discontinuation after 5 days if no evidence of bacterial infection. Inflammatory markers have improved. Incentive spirometry 1 dose of Lasix was given 05/19 with good result. Status: Acute (2) Acute and chronic respiratory failure with hypoxia: See above Status: Acute (3) Diabetes: Blood sugar still significantly elevated Increase Lantus to 30 units nightly, 10 units now Continue sliding scale insulin Check hemoglobin A1c Status: Acute Additional A&P Information Anxiety. Continue Ativan as needed Full code Lovenox for DVT prophylaxis, 30 mg twice daily considering weight Attestations Medical Necessity Statement*: Needs continued hospitalization for supportive care and antiviral secondary to severe COVID-19 pneumonia. 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
[2021-05-20] MEDS: insulin glargine 100 units/1 mL 10 UNIT SUBCUT (13:07)
--- NOTE | 2021-05-20 15:34 | PC.NUTR ---
Nutrition assessment completed d/t MST score of 3 for decreased appetite and wt loss. HgbA1C of 10.2, poc glucose ranging 370-469 noted. Recommend change diet to Consistent Carb--notified Dr. Howard of recommendation. Pt may benefit from outpatient nutrition education r/t diabetes if interested. See RD assessment for further details.
[2021-05-20 17:04] LABS: Glucose Point of Care 347 mg/dL (70-110)
[2021-05-20] MEDS: dexamethasone 4 mg/mL INJ 6 MG IVP (17:56)
[2021-05-20] MEDS: insulin glargine 100 units/1 mL 30 UNIT SUBCUT (21:03)
[2021-05-20] MEDS: levofloxacin-dextrose 5 % 750 MG/150 ML PREMIX 100 MG IV (21:03)
[2021-05-20 21:30] LABS: Glucose Point of Care 450 mg/dL (70-110)
[2021-05-20] MEDS: LORazepam 0.5 mg Tablet PO (22:26)
[2021-05-21] VITALS (16 sets, daily range): BP systolic 111–167; BP diastolic 70–90; PULSE 55–84; RESP 16–22; TEMP 36.4–37.1; O2SAT 84–97
[2021-05-21] MEDS: remdesivir 100 MG in sodium chloride 0.9% (100 ml) 100 ML IV (05:33)
[2021-05-21] MEDS: enoxaparin 30 mg/0.3 mL Syringe SUBCUT ×2 (05:33→17:31)
[2021-05-21 06:39] LABS: Glucose Point of Care 397 mg/dL (70-110)
[2021-05-21] MEDS: pantoprazole DR 40 mg Tablet PO (09:02)
[2021-05-21 11:17] LABS: Alanine Aminotransferase 19 U/L (0-33); Alkaline Phosphatase 172 IU/L (35-105); Anion Gap 18.1 (5-19); Aspartate Amino Transferase 18 U/L (0-32); Blood Urea Nitrogen 26 mg/dL (6-20); Calcium 9.1 mg/dL (8.5-10.5); Carbon Dioxide 23 mmol/L (22-29); Chloride 98 mmol/L (98-107); Creatinine Clr Calc Pharmacy 143.0571; Globulin 2.6 g/dL (1.3-4.6); Glomerular Filtration Rate 107.2 mL/min (90-130); Glucose 446 mg/dL (65-115); Osmolality Calculated 304 mOsm/kg (285-295); Potassium 4.1 mmol/L (3.5-5.1); Sodium 135 mmol/L (136-145); Total Bilirubin 0.3 mg/dL (0.15-1.2); Total Protein 5.6 g/dL (6.6-8.7)
[2021-05-21 11:27] LABS: Glucose Point of Care 417 mg/dL (70-110)
--- NOTE | 2021-05-21 11:59 | P.PN_ITS ---
Subjective Subjective: Interval history: Meagan reports she feels little bit better. She states she cannot really use the humidified high flow as it bothers her too much and she has back on a 15 L. Feels stronger. Medications: Reviewed: Yes Vitals/I&O/Wt Last Vital Signs Temp 97.6 F 05/21/21 11:01 Pulse 65 05/21/21 11:37 Resp 20 H 05/21/21 11:33 BP 128/74 05/21/21 11:01 Pulse Ox 91 05/21/21 11:33 05/20/21 05/21/21 05/21/21 22:59 06:59 14:59 Intake Total 390 / 1210 340 / 340 Output Total 750 / 750 850 / 1600 Balance -360 / 460 -850 / -390 340 / 340 Physical Exam Narrative: EXAM NARRATIVE: General exam is moderate respiratory distress, but does appear stronger Neck is supple no lymphadenopathy or thyromegaly Cardiovascular regular rate and rhythm without murmur Lungs coarse breath sounds bilaterally Abdomen is soft nontender with positive bowel sounds. No obvious organomegaly Extremities no cyanosis clubbing or edema Urinary Catheter Management^: Edwards: Cath Placed During This Visit: yes Reason for Continuing Indwelling Catheter: Other Urinary Catheter Date of Insertion: 05/19/21 Urinary Catheter Time of Insertion: 06:50 Data : 05/20/21 05:40 05/21/21 10:45 A&P Assessment and plan (1) Pneumonia due to COVID-19 virus: Continue dexamethasone 6 mg IV every 24 hours Continue remdesivir Tocilizumab was given 05/19 Combivent every 6 hours Wean oxygen as tolerated Currently on Levaquin. Consider discontinuation after 5 days if no evidence of bacterial infection. Inflammatory markers have improved. Repeat tomorrow along with procalcitonin level. Incentive spirometry 1 dose of Lasix was given 05/19 with good result. Status: Acute (2) Acute and chronic respiratory failure with hypoxia: See above Status: Acute (3) Diabetes: Blood sugar still significantly elevated Increase Lantus to 40 units nightl Continue sliding scale insulin Hemoglobin A1c was significantly elevated Status: Acute Additional A&P Information Anxiety. 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
--- NOTE | 2021-05-21 15:41 | PC.NURSE ---
I reported the low bp to the nurse
--- NOTE | 2021-05-21 15:42 | PC.NURSE ---
I reported the low 02 of 84% to the nurse. (not the bp from previous note)
[2021-05-21 16:56] LABS: Glucose Point of Care 307 mg/dL (70-110)
[2021-05-21] MEDS: dexamethasone 4 mg/mL INJ 6 MG IVP (17:31)
[2021-05-21] MEDS: levofloxacin-dextrose 5 % 750 MG/150 ML PREMIX 100 MG IV (21:34)
[2021-05-21 21:35] LABS: Glucose Point of Care 406 mg/dL (70-110)
[2021-05-21] MEDS: insulin glargine 100 units/1 mL 40 UNIT SUBCUT (21:40)
[2021-05-22] VITALS (17 sets, daily range): BP systolic 100–139; BP diastolic 64–87; PULSE 61–86; RESP 18–22; TEMP 36.6–37.2; O2SAT 85–97
[2021-05-22] MEDS: LORazepam 0.5 mg Tablet PO ×2 (02:29→23:03)
[2021-05-22] MEDS: remdesivir 100 MG in sodium chloride 0.9% (100 ml) 100 ML IV (05:24)
[2021-05-22] MEDS: enoxaparin 30 mg/0.3 mL Syringe SUBCUT ×2 (05:25→17:25)
[2021-05-22 06:35] LABS: Glucose Point of Care 352 mg/dL (70-110)
[2021-05-22 07:39] LABS: Basophils % 0.3 %; Eosinophils # 0.1 10^3/uL (0.0-0.8); Eosinophils % 0.9 %; Hematocrit 38.5 % (37.0-47.0); Hemoglobin 12.5 g/dL (11.5-15.3); Lymphocytes # 0.6 10^3/uL (0.8-4.8); Lymphocytes % 10.6 %; Mean Corpuscular HGB Conc 32.5 g/dL (30.0-36.0); Mean Corpuscular Hemoglobin 27.1 pg (28.0-34.0); Mean Corpuscular Volume 83.5 fL (81-99); Mean Platelet Volume 10.9 fL (7.4-10.4); Monocytes # 0.5 10^3/uL (0.2-0.9); Monocytes % 8.2 %; Neutrophils # 4.28 10^3/uL (1.8-7.7); Neutrophils % 74.8 %; Nucleated Red Blood Cells % 0 %; Platelet Count 322 10^3/cmm (130-400); Red Blood Count 4.61 10^6/uL (4.1-5.3); Red Cell Distribution Width 13.2 % (12.1-15.1); White Blood Count 5.7 10^3/uL (4.0-10.0)
[2021-05-22 07:52] LABS: D Dimer 1.85 ug/mIFEU (0-0.59)
[2021-05-22 08:07] LABS: Procalcitonin 0.02 ng/mL (0-0.5)
[2021-05-22 08:18] LABS: Alanine Aminotransferase 17 U/L (0-33); Albumin Level 3.2 g/dL (3.5-5.2); Alkaline Phosphatase 159 IU/L (35-105); Aspartate Amino Transferase 14 U/L (0-32); Blood Urea Nitrogen 25 mg/dL (6-20); C Reactive Protein 5.9 mg/L (0.0-4.9); Calcium 8.8 mg/dL (8.5-10.5); Carbon Dioxide 25 mmol/L (22-29); Chloride 98 mmol/L (98-107); Creatinine Clr Calc Pharmacy 143.0571; Ferritin 228 ng/mL (15-150); Globulin 2.5 g/dL (1.3-4.6); Glomerular Filtration Rate 107.2 mL/min (90-130); Glucose 341 mg/dL (65-115); Osmolality Calculated 296 mOsm/kg (285-295); Sodium 134 mmol/L (136-145); Total Bilirubin 0.3 mg/dL (0.15-1.2); Total Protein 5.7 g/dL (6.6-8.7)
[2021-05-22 08:32] LABS: Slide Review Slide Review Perform
[2021-05-22] MEDS: pantoprazole DR 40 mg Tablet PO (08:46)
[2021-05-22] MEDS: FUROsemide 10 mg/mL SDV 2mL 20 MG IVP (09:46)
--- NOTE | 2021-05-22 10:41 | P.PN_ITS ---
Subjective Subjective: Interval history: Meagan reports she feels a little bit better as far as her breathing. She is slightly nauseated this morning. Medications: Reviewed: Yes Vitals/I&O/Wt Last Vital Signs Temp 97.8 F 05/22/21 08:00 Pulse 77 05/22/21 09:10 Resp 18 05/22/21 09:10 BP 137/87 05/22/21 08:00 Pulse Ox 96 05/22/21 09:10 05/21/21 05/22/21 05/22/21 22:59 06:59 14:59 Intake Total 720 / 1300 610 / 1910 Output Total 1550 / 1550 1100 / 2650 Balance -830 / -250 -490 / -740 Physical Exam Narrative: EXAM NARRATIVE: General exam is moderate respiratory distress, but does appear stronger Neck is supple no lymphadenopathy or thyromegaly Cardiovascular regular rate and rhythm without murmur Lungs coarse breath sounds bilaterally Abdomen is soft nontender with positive bowel sounds. No obvious organomegaly Extremities no cyanosis clubbing or edema Urinary Catheter Management^: Edwards: Cath Placed During This Visit: yes Reason for Continuing Indwelling Catheter: Other Urinary Catheter Date of Insertion: 05/19/21 Urinary Catheter Time of Insertion: 06:50 Data : 05/22/21 06:35 05/22/21 06:35 A&P Assessment and plan (1) Pneumonia due to COVID-19 virus: Continue dexamethasone 6 mg IV every 24 hours Continue remdesivir Tocilizumab was given 05/19 Combivent every 6 hours Wean oxygen as tolerated. She is now down to 10 L Procalcitonin level repeated and not elevated. Discontinue Levaquin. Incentive spirometry 1 dose of Lasix was given 05/19 with good result. Repeat dose today to see if this improves oxygenation further Status: Acute (2) Acute and chronic respiratory failure with hypoxia: See above Status: Acute (3) Diabetes: Blood sugar still significantly elevated Increase Lantus to 50 units Continue sliding scale insulin Hemoglobin A1c was significantly elevated Status: Acute Additional A&P Information Anxiety. Continue Ativan as needed Full code Lovenox for DVT prophylaxis, 30 mg twice daily considering weight Lab holiday tomorrow. Attestations Medical Necessity Statement*: Needs continued hospitalization for antiviral, supportive care secondary to severe COVID-19 pneumonia. Coding Level of Care Code Acute First Breaker Feeder for [facility] Fwd Diagnoses Pneumonia due to COVID-19 virus U07.1; J12.82 Acute and chronic respiratory failure with hypoxia J96.21 Diabetes E11.9
[2021-05-22 11:11] LABS: Glucose Point of Care 375 mg/dL (70-110)
[2021-05-22] MEDS: ondansetron 2 mg/ML SDV 2 mL 4 MG IVP (11:38)
[2021-05-22 17:12] LABS: Glucose Point of Care 266 mg/dL (70-110)
[2021-05-22] MEDS: dexamethasone 4 mg/mL INJ 6 MG IVP (17:25)
[2021-05-22 21:38] LABS: Glucose Point of Care 424 mg/dL (70-110)
[2021-05-22] MEDS: insulin glargine 100 units/1 mL 50 UNIT SUBCUT (22:31)
[2021-05-23] VITALS (13 sets, daily range): BP systolic 103–134; BP diastolic 67–77; PULSE 51–84; RESP 16–20; TEMP 36.4–36.8; O2SAT 90–98
[2021-05-23] MEDS: remdesivir 100 MG in sodium chloride 0.9% (100 ml) 100 ML IV (05:26)
[2021-05-23] MEDS: enoxaparin 30 mg/0.3 mL Syringe SUBCUT ×2 (05:26→17:48)
[2021-05-23 06:41] LABS: Glucose Point of Care 447 mg/dL (70-110)
--- NOTE | 2021-05-23 07:54 | P.PN_ITS ---
Subjective Subjective: Interval history: Meagan reports she feels better. Has more energy. Oxygen was unable to be weaned last night. Medications: Reviewed: Yes Vitals/I&O/Wt Last Vital Signs Temp 97.6 F 05/23/21 03:44 Pulse 51 L 05/23/21 06:00 Resp 20 H 05/23/21 03:44 BP 134/77 05/23/21 03:44 Pulse Ox 92 05/23/21 03:44 05/22/21 05/23/21 05/23/21 22:59 06:59 14:59 Intake Total 360 / 960 700 / 1660 Output Total 1950 / 1950 1000 / 2950 Balance -1590 / -990 -300 / -1290 Physical Exam Narrative: EXAM NARRATIVE: General exam is moderate respiratory distress, but does appear stronger Neck is supple no lymphadenopathy or thyromegaly Cardiovascular regular rate and rhythm without murmur Lungs coarse breath sounds bilaterally Abdomen is soft nontender with positive bowel sounds. No obvious organomegaly Extremities no cyanosis clubbing or edema Urinary Catheter Management^: Edwards: Cath Placed During This Visit: yes, but has since been removed by the nurse Reason for Continuing Indwelling Catheter: Decision to DC Catheter Urinary Catheter Date of Insertion: 05/19/21 Urinary Catheter Time of Insertion: 06:50 Date Urinary Catheter Removed: 05/22/21 Time Urinary Catheter Discontinued: 17:34 Data : 05/22/21 06:35 05/22/21 06:35 A&P Assessment and plan (1) Pneumonia due to COVID-19 virus: Continue dexamethasone 6 mg IV every 24 hours She has completed her course of remdesivir Tocilizumab was given 05/19 Combivent every 6 hours Wean oxygen as tolerated. Last night she went back up to 11 to 12 L Procalcitonin level repeated and not elevated. Levaquin has been discontinued Incentive spirometry 1 dose of Lasix was given 05/19 with good result, repeat dose 05/22 Status: Acute (2) Acute and chronic respiratory failure with hypoxia: See above Status: Acute (3) Diabetes: Blood sugar still significantly elevated Increase Lantus to 60 units Continue sliding scale insulin Hemoglobin A1c was significantly elevated Status: Acute Additional A&P Information Anxiety. Continue Ativan as needed Full code Lovenox for DVT prophylaxis, 30 mg twice daily considering weight Repeat laboratory tomorrow including CRP Attestations Medical Necessity Statement*: Needs continued hospitalization for supportive care from COVID-19 pneumonia secondary to need for high amount of O2 Coding Level of Care Code Acute Loss Prevention Research Engineer for [facility] Fwd Diagnoses Pneumonia due to COVID-19 virus U07.1; J12.82 Acute and chronic respiratory failure with hypoxia J96.21 Diabetes E11.9
[2021-05-23] MEDS: pantoprazole DR 40 mg Tablet PO (08:19)
[2021-05-23 16:58] LABS: Glucose Point of Care 325 mg/dL (70-110)
[2021-05-23] MEDS: acetaminophen 325 mg Tablet 650 MG PO (17:47)
[2021-05-23] MEDS: dexamethasone 4 mg/mL INJ 6 MG IVP (17:49)
[2021-05-23 21:06] LABS: Glucose Point of Care 359 mg/dL (70-110)
[2021-05-23] MEDS: insulin glargine 100 units/1 mL 60 UNIT SUBCUT (21:52)
[2021-05-24] VITALS (14 sets, daily range): BP systolic 102–124; BP diastolic 64–77; PULSE 54–95; RESP 16–22; TEMP 36.4–37.2; O2SAT 74–97
[2021-05-24 06:16] LABS: Basophils % 0.4 %; Eosinophils # 0.1 10^3/uL (0.0-0.8); Eosinophils % 1.4 %; Hematocrit 40.5 % (37.0-47.0); Hemoglobin 13.3 g/dL (11.5-15.3); Lymphocytes # 0.7 10^3/uL (0.8-4.8); Lymphocytes % 7.7 %; Mean Corpuscular HGB Conc 32.8 g/dL (30.0-36.0); Mean Corpuscular Hemoglobin 27.5 pg (28.0-34.0); Mean Corpuscular Volume 83.7 fL (81-99); Mean Platelet Volume 11.4 fL (7.4-10.4); Monocytes # 0.5 10^3/uL (0.2-0.9); Monocytes % 5.9 %; Neutrophils # 6.72 10^3/uL (1.8-7.7); Neutrophils % 79.8 %; Nucleated Red Blood Cells % 0 %; Platelet Count 325 10^3/cmm (130-400); Red Blood Count 4.84 10^6/uL (4.1-5.3); Red Cell Distribution Width 13.8 % (12.1-15.1); White Blood Count 8.4 10^3/uL (4.0-10.0)
[2021-05-24] MEDS: enoxaparin 30 mg/0.3 mL Syringe SUBCUT ×2 (06:36→17:42)
[2021-05-24 06:52] LABS: Glucose Point of Care 339 mg/dL (70-110)
[2021-05-24 06:54] LABS: Alanine Aminotransferase 13 U/L (0-33); Albumin Level 3.3 g/dL (3.5-5.2); Alkaline Phosphatase 159 IU/L (35-105); Anion Gap 17.2 (5-19); Aspartate Amino Transferase 12 U/L (0-32); Blood Urea Nitrogen 27 mg/dL (6-20); C Reactive Protein 3.1 mg/L (0.0-4.9); Carbon Dioxide 22 mmol/L (22-29); Chloride 97 mmol/L (98-107); Creatinine Clr Calc Pharmacy 143.0571; Globulin 2.3 g/dL (1.3-4.6); Glomerular Filtration Rate 107.2 mL/min (90-130); Glucose 391 mg/dL (65-115); Osmolality Calculated 295 mOsm/kg (285-295); Potassium 4.2 mmol/L (3.5-5.1); Sodium 132 mmol/L (136-145); Total Bilirubin 0.3 mg/dL (0.15-1.2); Total Protein 5.6 g/dL (6.6-8.7)
--- NOTE | 2021-05-24 09:07 | P.PN_ITS ---
Subjective Subjective: Interval history: Meagan reports she is feeling better each day. Oxygen has weaned down some. Medications: Reviewed: Yes Vitals/I&O/Wt Last Vital Signs Temp 98.1 F 05/24/21 08:00 Pulse 54 L 05/24/21 08:00 Resp 16 05/24/21 08:00 BP 124/77 05/24/21 08:00 Pulse Ox 92 05/24/21 08:00 05/23/21 05/24/21 05/24/21 22:59 06:59 14:59 Intake Total 720 / 1260 480 / 1740 Output Total 400 / 400 300 / 700 Balance 320 / 860 180 / 1040 Physical Exam Narrative: EXAM NARRATIVE: General exam is mild respiratory distress Neck is supple no lymphadenopathy or thyromegaly Cardiovascular regular rate and rhythm without murmur Lungs coarse breath sounds bilaterally Abdomen is soft nontender with positive bowel sounds. No obvious organomegaly Extremities no cyanosis clubbing or edema Urinary Catheter Management^: Edwards: Cath Placed During This Visit: yes, but has since been removed by the nurse Reason for Continuing Indwelling Catheter: Decision to DC Catheter Urinary Catheter Date of Insertion: 05/19/21 Urinary Catheter Time of Insertion: 06:50 Date Urinary Catheter Removed: 05/22/21 Time Urinary Catheter Discontinued: 17:34 Data : 05/24/21 05:17 05/24/21 05:17 Micro: Microbiology 05/18/21 19:00 Blood Culture - Final Blood NO GROWTH AFTER 5 DAYS 05/18/21 19:10 Blood Culture - Final Blood NO GROWTH AFTER 5 DAYS A&P Assessment and plan (1) Pneumonia due to COVID-19 virus: Continue dexamethasone 6 mg IV every 24 hours She has completed her course of remdesivir Tocilizumab was given 05/19 Combivent every 6 hours Wean oxygen as tolerated. I have reduced her to 7-1/2 L Procalcitonin level repeated and not elevated. Levaquin has been discontinued Incentive spirometry 1 dose of Lasix was given 05/19 with good result, repeat dose 05/22. Will repeat dose today, secondary to positive fluid balance Status: Acute (2) Acute and chronic respiratory failure with hypoxia: See above Status: Acute (3) Diabetes: Continue current dose of Lantus Continue sliding scale insulin Hemoglobin A1c was significantly elevated Status: Acute Additional A&P Information Anxiety. Continue Ativan as needed Full code Lovenox for DVT prophylaxis, 30 mg twice daily considering weight No need for laboratory tomorrow. If continues to improve possible discharge 1 to 2 days. Will likely need home oxygen. Attestations Medical Necessity Statement*: Needs continued hospitalization for COVID-19 pneumonia secondary to requirement of high amounts of oxygen. Coding Level of Care Code Acute Awning Finisher for [facility] Fwd Diagnoses Pneumonia due to COVID-19 virus U07.1; J12.82 Acute and chronic respiratory failure with hypoxia J96.21 Diabetes E11.9
[2021-05-24] MEDS: FUROsemide 10 mg/mL SDV 2mL 20 MG IVP (09:26)
[2021-05-24] MEDS: pantoprazole DR 40 mg Tablet PO (10:02)
[2021-05-24 10:45] LABS: Glucose Point of Care 450 mg/dL (70-110)
[2021-05-24 11:44] LABS: Add Urine Culture? No; Bacteria Urine 2+ /hpf; Bilirubin Urine Neg (Negative); Blood Urine Neg (Negative); Glucose Urine UA 2+ (Normal); Ketones Urine Negative (Negative); Leukocyte Esterase Urine Trace (Negative); Nitrate Urine Negative (Negative); Protein Urine Neg (Negative); Specific Gravity, Urine 1.005 (1.005-1.030); Squamous Epithelial Cell Urine RARE /hpf (0-5); Urine Appearance Clear (CLEAR); Urine Color Colorless (Yellow); Urobilinogen Urine Norm (Negative); pH Urine 5 (5-7)
[2021-05-24 17:04] LABS: Glucose Point of Care 366 mg/dL (70-110)
[2021-05-24] MEDS: dexamethasone 4 mg/mL INJ 6 MG IVP (17:42)
[2021-05-24 20:55] LABS: Glucose Point of Care 447 mg/dL (70-110)
[2021-05-24] MEDS: sulfamethoxazole-trimeth DS 160-800 mg Tablet 1 TAB PO (21:21)
[2021-05-24] MEDS: insulin glargine 100 units/1 mL 60 UNIT SUBCUT (21:24)
[2021-05-25] VITALS (11 sets, daily range): BP systolic 106–130; BP diastolic 68–78; PULSE 60–86; RESP 16–18; TEMP 36.7–37; O2SAT 92–98
[2021-05-25] MEDS: enoxaparin 30 mg/0.3 mL Syringe SUBCUT ×2 (05:48→17:29)
[2021-05-25 06:40] LABS: Glucose Point of Care 423 mg/dL (70-110)
[2021-05-25] MEDS: pantoprazole DR 40 mg Tablet PO (08:46)
[2021-05-25] MEDS: sulfamethoxazole-trimeth DS 160-800 mg Tablet 1 TAB PO ×2 (08:46→17:37)
[2021-05-25] MEDS: acetaminophen 325 mg Tablet 650 MG PO ×2 (09:03→20:03)
[2021-05-25] MEDS: LORazepam 0.5 mg Tablet PO (11:11)
--- NOTE | 2021-05-25 11:17 | XR_ITS ---
WS: [id number] XR chest 1V portable [id number] REASON FOR EXAM: dyspnea FINDINGS: Multiple ill-defined lung opacities throughout both lungs predominating in the left lower lung. These findings show no improvement and are possibly somewhat progressive since the examination of 1. No new findings. XR/XR chest 1V portable [id number] IMPRESSION: Bilateral pneumonitis without improvement, possibly further progressive.
[2021-05-25 11:27] LABS: Glucose Point of Care 448 mg/dL (70-110)
--- NOTE | 2021-05-25 15:31 | P.PN_ITS ---
Subjective Subjective: Interval history: Meagan reports she feels a little winded this morning, but is happy how her oxygen is doing. Medications: Reviewed: Yes Vitals/I&O/Wt Last Vital Signs Temp 98.1 F 05/25/21 11:58 Pulse 75 05/25/21 14:00 Resp 18 05/25/21 11:58 BP 106/69 05/25/21 11:58 Pulse Ox 95 05/25/21 11:58 05/25/21 05/25/21 05/25/21 06:59 14:59 22:59 Intake Total 480 / 1560 360 / 360 Output Total 2500 / 3700 1000 / 1000 Balance -2020 / -2140 -640 / -640 Physical Exam Narrative: EXAM NARRATIVE: General exam is no significant distress on current oxygen amount Neck is supple no lymphadenopathy or thyromegaly Cardiovascular regular rate and rhythm without murmur Lungs coarse breath sounds bilaterally Abdomen is soft nontender with positive bowel sounds. No obvious organomegaly Extremities no cyanosis clubbing or edema Urinary Catheter Management^: Edwards: Cath Placed During This Visit: yes, but has since been removed by the nurse Reason for Continuing Indwelling Catheter: Decision to DC Catheter Urinary Catheter Date of Insertion: 05/19/21 Urinary Catheter Time of Insertion: 06:50 Date Urinary Catheter Removed: 05/22/21 Time Urinary Catheter Discontinued: 17:34 Data : 05/24/21 05:17 05/24/21 05:17 A&P Assessment and plan (1) Pneumonia due to COVID-19 virus: Continue dexamethasone 6 mg IV every 24 hours She has completed her course of remdesivir Tocilizumab was given 05/19 Combivent every 6 hours Wean oxygen as tolerated. She is now down to about 7 L. Procalcitonin level repeated and not elevated. Levaquin has been discontinued Incentive spirometry 1 dose of Lasix was given 05/19 with good result, repeat dose 05/22. Dose repeated 05/24 Chest x-ray repeated today. No pneumothorax. Bilateral infiltrates still present as expected Status: Acute (2) Acute and chronic respiratory failure with hypoxia: See above Status: Acute (3) Diabetes: Increase Lantus Continue sliding scale insulin Hemoglobin A1c was significantly elevated Status: Acute Additional A&P Information Anxiety. Continue Ativan as needed Full code Lovenox for DVT prophylaxis, 30 mg twice daily considering weight BMP tomorrow Attestations Medical Necessity Statement*: Needs continued hospitalization for supportive care secondary to severe COVID-19 pneumonia. Coding Level of Care Code Acute Car Rental Service Attendant for g Fwd Diagnoses Pneumonia due to COVID-19 virus U07.1; J12.82 Acute and chronic respiratory failure with hypoxia J96.21 Diabetes E11.9
[2021-05-25 17:11] LABS: Glucose Point of Care 329 mg/dL (70-110)
[2021-05-25] MEDS: dexamethasone 4 mg/mL INJ 6 MG IVP (17:38)
[2021-05-25 21:48] LABS: Glucose Point of Care 479 mg/dL (70-110)
[2021-05-25] MEDS: insulin glargine 100 units/1 mL 70 UNIT SUBCUT (22:10)
[2021-05-26] VITALS (10 sets, daily range): BP systolic 110–152; BP diastolic 71–89; PULSE 64–87; RESP 18; TEMP 36.5–36.9; O2SAT 82–96
[2021-05-26] MEDS: LORazepam 0.5 mg Tablet PO (00:04)
[2021-05-26] MEDS: enoxaparin 30 mg/0.3 mL Syringe SUBCUT (06:09)
[2021-05-26 06:15] LABS: Glucose Point of Care 424 mg/dL (70-110)
[2021-05-26 06:27] LABS: Anion Gap 18.4 (5-19); Blood Urea Nitrogen 25 mg/dL (6-20); Calcium 8.7 mg/dL (8.5-10.5); Carbon Dioxide 18 mmol/L (22-29); Chloride 102 mmol/L (98-107); Glomerular Filtration Rate 89.7 mL/min (90-130); Glucose 405 mg/dL (65-115); Osmolality Calculated 299 mOsm/kg (285-295); Potassium 4.4 mmol/L (3.5-5.1); Sodium 134 mmol/L (136-145)
[2021-05-26] MEDS: sulfamethoxazole-trimeth DS 160-800 mg Tablet 1 TAB PO (08:07)
[2021-05-26] MEDS: pantoprazole DR 40 mg Tablet PO (08:07)
[2021-05-26] MEDS: FUROsemide 10 mg/mL SDV 2mL 20 MG IVP (10:39)
[2021-05-26] MEDS: acetaminophen 325 mg Tablet 650 MG PO (11:08)
--- NOTE | 2021-05-26 11:17 | PM.DCS ---
Discharge Providers Date of Admission: 05/18/21 19:44 Date of Discharge: May 26, 2021 Attending Provider at Admission: Mohinder Vo Attending Provider at Discharge: Vasquez Howard MD Diagnoses at Discharge Discharge Diagnosis (1) Pneumonia due to COVID-19 virus: Status: Acute (2) Acute and chronic respiratory failure with hypoxia: Status: Acute (3) Diabetes: Status: Acute Reason for Visit Reason for Visit: Covid +, pneumonia Hospital Course Hospital Course Meagan presented with significant shortness of breath and was found to have severe COVID-19 pneumonia requiring high amount of high flow oxygen. She received remdesivir, dexamethasone, Tocilizumab. CTA demonstrated no pulmonary embolism. Challenges during her hospital course was uncontrolled diabetes, with patient reporting blood sugars in the 300s even prior to becoming ill as well as having no healthcare provider. During her hospital stay she had gradual improvement in her condition, we need eventually to 5 L per nasal cannula on May 26. She also had some dysuria near the end of her hospital course and urine was equivocal for UTI so 3 days of Bactrim was initiated. She was eager to go home on the , home oxygen evaluation will be performed, and she will be discharged. She will not need dexamethasone on discharge. She will follow-up with her primary care provider in 3 to 5 days. She will use oxygen as indicated by her home oxygen evaluation. She will receive a glucose monitor, instructions for insulin and plans for any hypoglycemic events which might occur however unlikely. Physical Exam Narrative: EXAM NARRATIVE: General exam no apparent distress Neck is supple no lymphadenopathy or thyromegaly Cardiovascular regular rate and rhythm without murmur Lungs clear Abdomen is soft, obese Extremities no cyanosis clubbing or edema. Urinary Catheter Management^: Edwards: Cath Placed During This Visit: yes, but has since been removed by the nurse Reason for Continuing Indwelling Catheter: Decision to DC Catheter Urinary Catheter Date of Insertion: 05/19/21 Urinary Catheter Time of Insertion: 06:50 Date Urinary Catheter Removed: 05/22/21 Time Urinary Catheter Discontinued: 17:34 Discharge Data Data Completed and Pending: Completed Studies During Hospitalization Category Date Time Status XR chest 1V richard ble [id number] Routine Exams 05/25/21 11:17 Completed XR chest 1V richard ble [id number] Stat Exams 05/18/21 18:36 Completed Labs from last 24 hours 0705/26/21 05/25/21 06:08 05:47 21:43 Sodium 134 L Potassium 4.4 Chloride 102 Carbon Dioxide 18 L Anion Gap 18.4 BUN 25 H Creatinine 0.7 GFR Calculation 89.7 L Glucose 405 H POC Glucose 424 H 479 H Calculated Osmolal ity 299 H Calcium 8.7 05/25/21 05/25/21 17:06 11:17 Sodium Potassium Chloride Carbon Dioxide Anion Gap BUN Creatinine GFR Calculation Glucose POC Glucose 329 H 448 H Calculated Osmolal ity Calcium Vitals: Last Vital Signs Temp 97.9 F 05/26/21 08:00 Pulse 82 05/26/21 10:10 Resp 18 05/26/21 10:10 BP 152/89 05/26/21 08:00 Pulse Ox 96 05/26/21 10:10 Discharge Plan Discharge Patient Disposition: Home Condition: Stable Prescriptions: New (DME) Accu-Chek Guide Glucose Meter Misc See Rx Instructions .Route Qty: 1 RF: 0 insulin aspart U-100 [Novolog Flexpen U-100 Insulin] 100 unit/mL (3 mL) insulin pen 10 unit SUBCUT TID Qty: 15 RF: 0 Lantus Solostar U-100 Insulin 100 unit/mL (3 mL) insulin pen 50 unit SUBCUT QPM Qty: 15 RF: 0 pantoprazole 40 mg Tablet,Delayed Release (Dr/Ec) 40 mg PO DAILY Qty: 30 RF: 0 sulfamethoxazole-trimethoprim 800-160 mg Tablet 1 tab PO BID Qty: 4 RF: 0 Continued acetaminophen [Tylenol] 325 mg Tablet 325 - 650 mg PO Q4H PRN (Reason: PAIN/FEVER) RF: 0 guaifenesin [Mucus Relief] 200 mg Tablet 200 mg PO Q4H PRN (Reason: COLD/FLU SYMPTOMS) RF: 0 cholecalciferol (vitamin D3) [Vitamin D3] 50 mcg (2,000 unit) Tablet 50 mcg PO DAILY RF: 0 Vitamin C 1 tab PO DAILY RF: 0 albuterol sulfate 90 mcg/actuation HFA aerosol inhaler 2 puff inhalation Q4H PRN (Reason: shortness of breath or wheezing) Qty: 8.5 RF: 0 Discontinued potassium 75 mg Tablet 75 mg PO DAILY RF: 0 azithromycin 250 mg tablet 250 mg PO DAILY 6 Days RF: 0 methylprednisolone [Medrol (Yang)] 4 mg tablets,dose pack See Rx Instructions .ROUTE .COMPLEX Qty: 21 RF: 0 Discharge Orders: Discharge Order (Routine); Ordered 05/26/21 Ordered By: Vasquez Howard Referrals: Brennon Mead DO [Physician] - 06/02/21 11:00 am Discharge Diet: Diabetic Discharge Activity: Increase activity as tolerated Patient Instructions: Opioid Safety Activity Restrictions/Additional Instructions: Home oxygen evaluation prior to discharge Glucose meter, instructions on use Follow-up with primary care provider 3 to 5 days Return for any concerns. Discharge Attestations Time Spent in Discharge Care*: greater than 30 min Quality Metrics Clinical Quality Measures During this hospital stay, did patient experience: None Coding Level of Care Code Acute Chg FW DC note Diagnoses Pneumonia due to COVID-19 virus U07.1; J12.82 Acute and chronic respiratory failure with hypoxia J96.21 Diabetes E11.9
[2021-05-26 12:05] LABS: Glucose Point of Care 377 mg/dL (70-110)
== END 2021-05-26 16:49 | disposition home or self-care (01) | DRG 177 ==
LOC: ER 20:24 → MEDSURG 21:44
PROVIDERS: Internal Medicine; Nurse Practitioner Family; Admitting Provider Hospitalist; Emergency Provider Emergency Medicine; Visit Provider Internal Medicine
DX: U07.1 COVID-19 (principal); J12.82 Pneumonia due to coronavirus disease 2019; J96.21 Acute and chronic respiratory failure with hypoxia; N39.0 Urinary tract infection, site not specified; E11.65 Type 2 diabetes mellitus with hyperglycemia
CPT/HCPCS: 36415; 36416; 36600; 51702; 71045; 80048; 80053; 81001; 82550; 82728; 82803; 82962; 83036; 83605; 83880; 84145; 84484; 85025; 85378; 85384; 85610; 85730; 86140; 87040; 94640; 94660; 94762; 96365; 96372; 96375; 99291; J1100; J1650; J1815 ×2; J1940; J1956; J2405; J3262; J3535; J7030; J7040

== ENCOUNTER → 2021-12-16 10:47 | Outpatient (BNVA) | payer OTHER, SELFPAY | PROVIDERS: PCP Registered Nurse; Visit Provider Registered Nurse | DX: E53.8 Deficiency of other specified B group vitamins (principal); E11.65 Type 2 diabetes mellitus with hyperglycemia; E55.9 Vitamin D deficiency, unspecified; E78.5 Hyperlipidemia, unspecified; I10 Essential (primary) hypertension | CPT/HCPCS: 80053; 80061; 81000; 82306; 82607; 83036; 85025; 87077; 87086; 87184 ==

== ENCOUNTER → 2022-01-18 15:56 | Outpatient (BNVA) | payer OTHER, SELFPAY | PROVIDERS: PCP Registered Nurse; Visit Provider Registered Nurse | DX: N39.0 Urinary tract infection, site not specified (principal) | CPT/HCPCS: 81000 ==

== ENCOUNTER → 2022-03-10 10:26 | Outpatient (BNVA) | payer OTHER, SELFPAY | PROVIDERS: PCP Registered Nurse; Visit Provider Registered Nurse | DX: E11.65 Type 2 diabetes mellitus with hyperglycemia (principal) | CPT/HCPCS: 80053; 83036 ==

== ENCOUNTER → 2022-04-23 13:16 | Outpatient (BNVA) | payer OTHER, SELFPAY | PROVIDERS: PCP Registered Nurse; Visit Provider Registered Nurse | DX: N39.0 Urinary tract infection, site not specified (principal); J01.40 Acute pansinusitis, unspecified; R39.9 Unspecified symptoms and signs involving the genitourinary system; E11.65 Type 2 diabetes mellitus with hyperglycemia; R46.89 Other symptoms and signs involving appearance and behavior | CPT/HCPCS: 81000 ==

== ENCOUNTER → 2022-10-19 16:01 | Outpatient (BNVA) | payer OTHER, SELFPAY | PROVIDERS: PCP Registered Nurse; Visit Provider Family Medicine | DX: E11.65 Type 2 diabetes mellitus with hyperglycemia (principal) | CPT/HCPCS: 80053; 80061; 83036; 84443; 85025 ==

== ENCOUNTER → 2023-01-12 12:04 | Outpatient (BNVA) | payer OTHER, SELFPAY | PROVIDERS: PCP Family Medicine; Visit Provider Family Medicine | DX: E78.5 Hyperlipidemia, unspecified; E78.1 Pure hyperglyceridemia; E11.9 Type 2 diabetes mellitus without complications; E11.65 Type 2 diabetes mellitus with hyperglycemia | CPT/HCPCS: 80061; 83036 ==

== ENCOUNTER → 2023-04-01 11:07 | Outpatient (BNVA) | payer OTHER, SELFPAY ==
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
== END ==
PROVIDERS: PCP Registered Nurse; Visit Provider Registered Nurse
DX: E53.8 Deficiency of other specified B group vitamins (principal); R53.83 Other fatigue; E66.01 Morbid (severe) obesity due to excess calories; Z68.42 Body mass index [BMI] 45.0-49.9, adult; E78.5 Hyperlipidemia, unspecified; E78.1 Pure hyperglyceridemia; E11.65 Type 2 diabetes mellitus with hyperglycemia; D17.23 Benign lipomatous neoplasm of skin and subcutaneous tissue of right leg
CPT/HCPCS: 80053; 82607; 82670; 83001; 83002; 83036; 84443; 85025; 97802

== ENCOUNTER 2023-07-27 14:53 | Outpatient (CLI) | payer OTHER, SELFPAY ==
[2023-07-27 16:06] LABS: Estmated Average Glucose 171; Hemoglobin A1C 7.6 % (4.0-6.0)
== END 2023-07-27 14:54 | disposition home or self-care (01) ==
PROVIDERS: PCP Registered Nurse; Visit Provider Registered Nurse
DX: E11.9 Type 2 diabetes mellitus without complications (principal)
CPT/HCPCS: 36415; 83036

== ENCOUNTER → 2023-12-21 09:55 | Outpatient (BNVA) | payer OTHER, SELFPAY | PROVIDERS: PCP Registered Nurse; Visit Provider Registered Nurse | DX: E11.9 Type 2 diabetes mellitus without complications (principal) | CPT/HCPCS: 80053; 83036 ==